=== PATIENT | male | born 1980 | race Native Hawaiian/Other Pacific Islander ===

== ENCOUNTER 2018-07-24 18:10 | Emergency (ER) | payer SELFPAY ==
[2018-07-24] MEDS ORDERED: BOOSTRIX IM ONE (20:11)
[2018-07-24] MEDS ORDERED: NACL 0.9% IR ONE (20:14)
[2018-07-24] MEDS ORDERED: XYLOCAINE 1% MPF 5 mL INFILTRATI ONE (20:14)
--- NOTE | 2018-07-24 20:14 | Emergency Department Report ---
ED Laceration HPI - HPI Chief Complaint: Wound/Laceration Stated Complaint: INJURED FINGER Time Seen by Provider: 07/24/18 20:06 Occurred When: Today Location: Upper Extremity (right fourth digit) Severity: mild (2/10) Tetanus Status: Not up to Date (greater than 10 years) Laceration Symptoms: Yes Pain (2/10 to right fourth digit), No Foreign Body Sensation, No Numbness, No Weakness Other History: This is a 38-year-old male here with family report that patient left hand was injured with a metal brent today. Reported that a metal brent when about 20 pounds landed on his hand while he is working. Pain is 2/10 and feels sore. Denies any radiation of pain. Pain is localize to left 4 digit of left hand. Denies any numbness and tingling. Bleeding stopped with pressure. ED Review of Systems ROS: Stated complaint: INJURED FINGER Other details as noted in HPI Constitutional: denies: chills, fever Respiratory: denies: cough, shortness of breath, wheezing Cardiovascular: denies: chest pain, palpitations, edema, syncope Gastrointestinal: denies: nausea, vomiting Musculoskeletal: joint swelling, arthralgia. denies: back pain, myalgia Skin: other (laceration left 4 digit). denies: rash Neurological: denies: headache, numbness, paresthesias, abnormal gait, vertigo ED Past Medical Hx - Past Medical History Previous Medical History?: No - Surgical History Past Surgical History?: No - Family History Family history: no significant - Social History Smoking Status: Never Smoker Substance Use Type: Alcohol - Medications Home Medications: Home Medications Medication Instructions Recorded Confirmed Last Taken Type Ibuprofen [Motrin] 800 mg PO Q8HR PRN #12 tablet 07/24/18 Unknown Rx cephALEXin [Keflex] 500 mg PO Q8HR 7 Days #21 cap 07/24/18 Unknown Rx Laceration Physical Exam - Exam General: Vital signs noted. No distress. Alert and acting appropriately. This is a 38-year-old male well-nourished well-developed in no acute distress. Wound Length (cm): 2 Laceration Location: Upper Extremity (left 4 digit finger, distal phalanx) Full Body Front + Back: 1 - Left 4 digit distal phalanx of finger. Very superficial and no bleeding at present. Minimal tenderness to palpate. Laceration Exam: Yes Normal Distal CMS (No cce. + 2 pulses in all extremities, no neurovascular compromise), No Foreign Body, No Exposed Tendon, Vessel, or Nerve, No Tendon Injury ED Course Vital Signs 07/24/18 18:15 Temperature 98.2 F Pulse Rate 83 Respiratory 18 Rate Blood Pressure 124/81 O2 Sat by Pulse 98 Oximetry - Reevaluation(s) Reevaluation #1: 07/24/18 21:09 Patient given Boostrix 0.5 mL in emergency room to update tetanus. Please see procedure note for details on laceration repair - Laceration /Wound Repair Left Distal Palm Finger Wound Location: upper extremity (left distal phalanx at 4 digit) Wound Length (cm): 2 Wound's Depth, Shape: superficial, irregular, contused tissue Wound Explored: no foreign body removed Irrigated w/ Saline (ccs): 250 Betadine Prep?: Yes Anesthesia: 1% Lidocaine Volume Anesthetic (ccs): 3 Wound Debrided: moderate Wound Repaired With: sutures Suture Size/Type: 4:0 (Ethilon) Number of Sutures: 8 Layer Closure?: No Sterile Dressing Applied?: Yes ED Medical Decision Making - Medical Decision Making This is a 38-year-old male here for injury to left 4 digit of distal phalanx. He was found to have minimal contusion with 2 cm laceration that is superficial and the regular. Bilateral radial ulnar pulses are 2+ and bounding and he has no other abnormality of his extremity except for laceration contusion. No radiology study needed due to superficial laceration and no bony tenderness. Laceration repaired. See procedure note for detail. Patient updated on his tetanus shot. Discharge home with prescription for Keflex and Motrin and to return to the emergency room or urgent care in 7-10 days to have sutures removed and if there are any signs of infection as described such as fever, increased redness, swelling, increased pain, discoloration to return to the emergency room [facility] Critical care attestation.: If time is entered above; I have spent that time in minutes in the direct care of this critically ill patient, excluding procedure time. ED Disposition Clinical Impression: Contusion of left middle finger without damage to nail, initial encounter Laceration of finger of left hand without foreign body without damage to nail Qualifiers: Encounter type: initial encounter Finger: ring finger Qualified Code(s): S61. 215A - Laceration without foreign body of left ring finger without damage to nail, initial encounter Disposition: - TO HOME OR SELFCARE Is pt being admited?: No Does the pt Need Aspirin: No Condition: Stable Instructions: Finger Laceration (ED), Contusion in Adults (ED), RICE Therapy (ED), Suture Care (ED) Additional Instructions: Please keep affected area clean and dry. Follow-up with primary care, EDC or urgent care to have stitches removed in 7-10 days. If he notices any signs of infection, please return to emergency room [facility]. Take Keflex for antibiotic to prevent infection and Motrin for pain. See discharge instruction on contusion, laceration and suture care. See discharge instruction in Rice therapy Por favor mantenga el itanna afectada limpia y seca. Seguimiento con atencin primaria, EDC o atencin urgente para que los puntos de sutura se eliminen en 7-10 bryan. Si nota cualquier signo de infeccin, por favor regrese a la flaquita de emergencias lo antes posible. [place] Keflex para el antibitico para prevenir la infeccin y Motrin para el dolor. [place] instrucciones de descarga sobre contusin, Laceracin y cuidado de suturas. [place] la instruccin de la descarga adentro terapia del arroz Referrals: [facility] [Outside] - 7-10 days MAYDA GONZALEZ MD [Primary Care Provider] - 7-10 days Forms: Accompanied Note, Work/School Release Form(ED)
[2018-07-25 14:31] VITALS: BP 124/81
== END 2018-07-24 21:35 | disposition home or self-care (01) ==
LOC: ED 18:10
DX: S61.215A Laceration without foreign body of left ring finger without damage to nail, initial encounter (principal); W52.XXXA Crushed, pushed or stepped on by crowd or human stampede, initial encounter; Y93.89 Activity, other specified; Y92.69 Other specified industrial and construction area as the place of occurrence of the external cause; Y99.8 Other external cause status
CPT/HCPCS: 90471; 90715

== ENCOUNTER 2018-08-02 10:35 | Emergency (ER) | payer SELFPAY ==
--- NOTE | 2018-08-02 11:22 | Emergency Department Report ---
Suture/Staple Removal - HPI Chief Complaint: Laceration/Recheck/Suture Stated Complaint: STICTHS REMOVAL Time Seen by Provider: 08/02/18 10:52 When Sutures or Shipman Placed: 8-10 Days Ago Wound Location: FINGER ED Review of Systems ROS: Stated complaint: STICTHS REMOVAL Other details as noted in HPI Comment: All other systems reviewed and negative Constitutional: denies: chills Eyes: denies: as per HPI ENT: denies: throat pain Respiratory: denies: orthopnea Cardiovascular: denies: palpitations Endocrine: denies: flushing Gastrointestinal: denies: abdominal pain Genitourinary: denies: urgency Musculoskeletal: denies: back pain Skin: as per HPI, lesions Neurological: denies: headache Psychiatric: denies: anxiety ED Past Medical Hx - Past Medical History Previous Medical History?: No - Social History Smoking Status: Never Smoker Substance Use Type: Alcohol - Medications Home Medications: Home Medications Medication Instructions Recorded Confirmed Last Taken Type Ibuprofen [Motrin] 800 mg PO Q8HR PRN #12 tablet 07/24/18 Unknown Rx cephALEXin [Keflex] 500 mg PO Q8HR 7 Days #21 cap 07/24/18 Unknown Rx Suture Removal Exam - Exam General: Vital signs noted. No distress. Alert and acting appropriately. Wound: No Pathologic Erythema, No Tenderness, No Drainage, No Pus, No Wound Dehiscence Other Systems: All other systems reviewed and are unremarkable. ED Recheck MDM - Core Measures Measure Exclusions: not indicated - Differential Diagnosis Suture/Staple Removal SUTURE REMOVAL - Medical Decision Making sutures removed without difficulty no infection some skin over growth occurred wound cleaned and dressed neurovasc intact Critical care attestation.: If time is entered above; I have spent that time in minutes in the direct care of this critically ill patient, excluding procedure time. ED Disposition Clinical Impression: Visit for suture removal Disposition: DC-01 TO HOME OR SELFCARE Is pt being admited?: No Does the pt Need Aspirin: No Condition: Stable Instructions: Suture Removal (ED) Referrals: DAVID BEJARANO MD [Primary Care Provider] - 3-5 Days Time of Disposition: 11:22
== END 2018-08-02 11:31 | disposition home or self-care (01) ==
LOC: ED 10:35